=== PATIENT | male | born 1955 | race Caucasian/White ===

== ENCOUNTER 2017-12-10 13:34 | Emergency (ER) | payer OTHER ==
[~2017-12-10] VITALS: Ht 172.7 cm; Wt 69.8 kg
[2017-12-10 14:14] LABS: HEMATOCRIT 40.1 % (42.0-52.0); HEMOGLOBIN 13.5 gm/dL (14.0-18.0); MCH 32.3 pg (26.0-34.0); MCHC 33.6 g/dL (28.0-37.0); MCV 95.9 fL (80.0-100.0); MPV 8.2 fl. (7.2-11.1); NUCLEATED RBCS 0 /100WBC; PLATELET COUNT* 249 thou/uL (150-400); RBC 4.18 mil/uL (4.50-6.00); WBC 7.8 thou/uL (4.0-11.0)
[2017-12-10 14:27] LABS: CALCIUM 9.4 mg/dL (8.5-10.1); CREATININE 0.8 mg/dL (0.6-1.3); POTASSIUM 3.6 mmol/L (3.5-5.1)
[2017-12-10 14:31] LABS: ALBUMIN 3.9 g/dL (3.4-5.0); TOTAL BILIRUBIN 1.2 mg/dL (<0.1-1.0); TOTAL PROTEIN 7.4 g/dL (6.4-8.2)
[2017-12-10 14:32] LABS: URINE BILIRUBIN NEGATIVE (Negative); URINE BLOOD TRACE (Negative); URINE CLARITY CLEAR; URINE COLOR YELLOW; URINE GLUCOSE-RANDOM NEGATIVE (Negative); URINE KETONES TRACE (Negative); URINE LEUKOCYTES-REFLEX NEGATIVE (Negative); URINE NITRITE-REFLEX NEGATIVE (Negative); URINE PROTEIN NEGATIVE (Negative)
[2017-12-10 14:43] LABS: ABSOLUTE BASOPHILS 0.1 thou/uL (0.0-0.2); ABSOLUTE LYMPHOCYTES 0.8 thou/uL (0.8-5.3); ABSOLUTE MONOCYTES 0.5 thou/uL (0.0-1.2); ABSOLUTE NEUTROPHILS 6.5 thou/uL (1.6-8.1)
[2017-12-10 14:44] LABS: PLATELET ESTIMATE ADEQUATE
[2017-12-10 14:47] LABS: MACROCYTES Occasional; POLYCHROMASIA Occasional
[2017-12-10 15:52] LABS: APTT 32.5 Seconds (25.0-31.3)
[2017-12-10] MEDS ORDERED: KEFLEX500 M1 PO (16:07)
[2017-12-10 16:20] VITALS: BP 157/93
== END 2017-12-10 16:22 | disposition home or self-care (01) ==
LOC: M.ERS 13:34
PROVIDERS: Physician Assistant
DX: R21 Rash and other nonspecific skin eruption (principal); R01.1 Cardiac murmur, unspecified; Z90.49 Acquired absence of other specified parts of digestive tract